=== PATIENT | female | born 1940 | race Caucasian/White ===

== ENCOUNTER → 2018-11-24 10:39 | Outpatient (CLI) | payer MEDICARE, BC, SELFPAY ==
--- NOTE | 2018-11-24 10:47 | DI.CT.S_ITS ---
PROCEDURE: CT CHEST WO CON INDICATIONS: PULMONARY NODULES COPD TECHNIQUE: Noncontrast 2.0-2.5 mm thick sections acquired from the pulmonary apices to the posterior costophrenic angles. 7 mm thick axial MIP and 5 mm coronal and sagittal reformats were then acquired. A low radiation dose technique was utilized. COMPARISON: None. FINDINGS: Image quality: Diagnostic, given the low radiation dose technique. Lungs and pleura: No acute airspace opacities. No pleural effusion or pneumothorax. Mild interlobular septal thickening is present at the bilateral dependent bases suggesting either dependent atelectasis or early fibrotic changes. There is a 4 mm diameter pulmonary nodule at the lingular base (series 2, image 189). No other pulmonary nodules. Mediastinum: Heart size is normal. No pericardial effusion. No mediastinal adenopathy by size criteria. Thoracic aorta and central pulmonary arteries are normal in size. Esophagus is normal in caliber. No hiatal hernia. Bones and chest wall: No suspicious bony lesions. No vertebral body compression fractures. No axillary or supraclavicular adenopathy by size criteria. Surgical clips are present within the right axilla. Thyroid gland is unremarkable. Abdomen: Pneumobilia is partially characterized at the dome of the liver. Visualized upper abdomen solid organs and bowel loops appear normal in the absence of contrast. IMPRESSION: 1. 4 mm lingular nodule. No followup routinely recommended; however in a high risk patient, 12 month followup could be considered. 2. Partially visualized pneumobilia. Please correlate with clinical history and prior biliary intervention. If further characterization is warranted, CT of the abdomen is recommended. Fleischner Society criteria for SOLID lung nodule followup. Nodule size (mm)Low-risk patientHigh-risk patient<6 (single or multiple)No routine followup.Optional CT at 12 months. 6-8 (single or multiple)CT at 6-12 months, then optional CT at 18-24 mo.CT at 6-12 months, then CT at 18-24 months. >8 (single)CT at 3 months, PET-CT, or biopsy. Same as for low-risk pts. >8 (multiple)CT at 3-6 months, then optional CT at 18-24 mo.CT at 3-6 months, then CT at 18-24 months. Fleischner Society criteria for SUB-SOLID lung nodule followup. Solitary pure ground-glass nodules<6 mm (ground glass or part solid)No followup needed. 6 mm or larger (ground glass)CT at 6-12 months to confirm persistence, then CT every 2 years until 5 years.6 mm or larger (part solid)CT at 3-6 months to confirm persistence, then annual CT until 5 years if unchanged and solid component remains <6 mm. Multiple sub-solid nodules<6 mmCT at 3-6 months, then CT consider at 2 & 4 years for high risk patients. [address] at 3-6 months. Subsequent management based on most suspicious lesions. Recommendations do not apply to lung cancer screening, patients with immunosuppression, or patients with known primary cancer. Dictated by: Anay Swanson M.D. on 11/24/2018 at 13:39 Approved by: Anay Swanson M.D. on 11/24/2018 at 13:43
== END ==
PROVIDERS: Visit Provider Internal Medicine Critical Care Medicine
DX: R91.8 Other nonspecific abnormal finding of lung field (principal); J44.9 Chronic obstructive pulmonary disease, unspecified
CPT/HCPCS: 71250

== ENCOUNTER → 2019-07-13 09:37 | Outpatient (CLI) | payer MEDICARE, BC, SELFPAY ==
--- NOTE | 2019-07-13 | DI.MRI.S_ITS ---
PROCEDURE: MR LUMBAR SPINE WO CON INDICATIONS: Lumbago with sciatica, left side TECHNIQUE: Noncontrast sagittal T1 spin echo and T2 fast echo, sagittal STIR, axial T1 and T2 fast spin echo through the lumbar spine. In cases with scoliosis, additional coronal T2 fast spin echo may be performed. COMPARISON: [facility], MR, L-SPINE WITHOUT CONTRAST, 02/26/2011, 18:22. FINDINGS: Image quality: Diagnostic. Patient motion artifact. Alignment and Curvature: Anterolisthesis of L4 on L5 measures approximately 5 mm. Trace retrolisthesis of L2 on L3. Bone Marrow: Marrow is of normal overall signal. No acute vertebral body compression fractures. Spinal Cord: Conus medullaris terminates at the L1 level. Visualized cord demonstrates normal signal and size. Paraspinous Soft Tissues: No paravertebral masses. T12-L1: Mild disc bulge. No canal stenosis or foraminal stenosis. L1-L2: Interval progression. Disc bulge and facet and ligament hypertrophy. Mild to moderate canal stenosis. No significant foraminal stenosis. L2-L3: Previous right paracentral disc protrusion has significantly improved. However, there is moderate diffuse disc bulge. Facet and ligament hypertrophy has progressed. There is severe multifactorial canal stenosis. There is mild foraminal stenosis. L3-L4: Diffuse disc bulge is slightly improved. However, there is disc bulge and facet and ligament hypertrophy resulting in severe canal stenosis. There is mild to moderate bilateral foraminal narrowing with flattening deformity of the exiting bilateral L3 nerve roots. L4-L5: A combination of mild anterolisthesis of L4 on L5, posterior disc bulge, and exuberant facet and ligament hypertrophy result in marked canal stenosis. Mild left foraminal stenosis. L5-S1: Disc bulge, facet and ligament hypertrophy. At least moderate canal stenosis. Mild bilateral foraminal stenosis. IMPRESSION: 1. Despite resolution of a disc protrusion at L2-L3 and improvement in the disc bulge at L3-L4, there has been overall multilevel progression 2. Canal stenosis is mild to moderate at L1-L2, severe at L2-L3, severe at L3-L4, marked at L4-L5, and at least moderate at L5-S1. Dictated by: Prashant Baptiste M.D. on 07/13/2019 at 11:08 Approved by: Prashant Baptiste M.D. on 07/13/2019 at 11:17
== END ==
PROVIDERS: Referring Provider Acupuncturist; Visit Provider Acupuncturist
DX: M51.16 Intervertebral disc disorders with radiculopathy, lumbar region (principal); M48.061 Spinal stenosis, lumbar region without neurogenic claudication; M48.07 Spinal stenosis, lumbosacral region; M43.16 Spondylolisthesis, lumbar region
CPT/HCPCS: 72148

== ENCOUNTER → 2021-01-16 13:57 | Outpatient (CLI) | payer MEDICARE, BC, SELFPAY ==
--- NOTE | 2021-01-16 | DI.MRI.S_ITS ---
PROCEDURE: MR LUMBAR SPINE WO CON INDICATIONS: Lumbago with sciatica, right side TECHNIQUE: Noncontrast sagittal T1 spin echo and T2 fast echo, sagittal STIR, axial T1 and T2 fast spin echo through the lumbar spine. In cases with scoliosis, additional coronal T2 fast spin echo may be performed. COMPARISON: [facility], , MR LUMBAR SPINE WO CON, 07/13/2019, 10:05. FINDINGS: Image quality: This examination is limited by involuntary motion artifact. Alignment and Curvature: There is normal bony alignment. Bone Marrow: Marrow is of normal overall signal. No acute vertebral body compression fractures. Spinal Cord: Conus medullaris terminates at the L1 level. Visualized cord demonstrates normal signal and size. Paraspinous Soft Tissues: No paravertebral masses. T12-L1: Normal appearance. L1-L2: The disc height and disc signal are relatively well preserved. Mild generalized disc bulge is seen. Mild to moderate facet hypertrophy is seen. Associated hypertrophy of the ligamentum flavum can be seen. There is moderate left-sided and [id number] right-sided neural foraminal narrowing seen. Mild central canal narrowing is seen. There is no significant progression compared to 2019. L2-L3: At least moderate loss of disc height and disc signal can be seen. Reactive marrow endplate changes are seen, which are hyperintense on T1-weighted and T2-weighted imaging and most consistent with fatty metaplasia (Modic type II changes). Moderate disc bulge is seen, with a central/right disc protrusion. At least moderate facet hypertrophy is seen. Associated hypertrophy of the ligamentum flavum can be seen. There is moderate left-sided and [id number] right-sided neural foraminal narrowing seen. Moderate to severe central canal narrowing is seen, as on series 5, image 15. When comparison is made with the prior images, these findings are similar. L3-L4: Moderate loss of disc height is seen. Loss of disc signal is seen. At least moderate disc bulge is seen, which is eccentric to the right. At least moderate facet hypertrophy is seen at this level. Associated hypertrophy of the ligamentum flavum can be seen. There is moderate to severe left-sided and at least moderate right-sided neural foraminal narrowing seen. There is a degree of compression seen upon the exiting nerve roots. Moderate to severe central canal narrowing is seen, as on series 5, image 21. When comparison is made with the prior images, these findings are similar. L4-L5: The disc height is well-preserved. Loss of disc signal is seen at this level. Moderate generalized disc bulge is seen. Prominent facet hypertrophy is seen at this level. Associated hypertrophy of the ligamentum flavum can be seen. There is mild left-sided and no significant right-sided neural foraminal narrowing seen. Moderate to severe central canal narrowing is seen at this level. Compared to 2020, no significant progression of the degenerative change can be seen. L5-S1: The disc height is well-preserved. Loss of disc signal is seen at this level. Moderate disc bulge is seen, which is eccentric to the right. There is a central/left disc protrusion. There is a focal annular fissure seen posteriorly. Moderate facet joint hypertrophy is seen. There is at least moderate bilateral neural foraminal narrowing seen. There is a degree of compression seen upon the exiting nerve roots. At least moderate central canal narrowing can be seen. Compared to the prior images, these findings are mildly progressed. IMPRESSION: Lumbar spine degenerative changes are seen, which are slightly progressed at L5-S1 compared to 2020. Otherwise, stable degenerative changes. Dictated by: Pepe Vines M.D. on 01/16/2021 at 15:48 Approved by: Pepe Vines M.D. on 01/16/2021 at 15:53
== END ==
PROVIDERS: PCP Physician Assistant Medical; Referring Provider Acupuncturist; Visit Provider Acupuncturist
DX: M54.41 Lumbago with sciatica, right side (principal); M51.36 Other intervertebral disc degeneration, lumbar region; M51.37 Other intervertebral disc degeneration, lumbosacral region
CPT/HCPCS: 72148

== ENCOUNTER → 2021-03-12 11:18 | Outpatient (CLI) | payer MEDICARE, BC, SELFPAY ==
--- NOTE | 2021-03-12 11:22 | DI.CT.S_ITS ---
PROCEDURE: CT LUMBAR SPINE WO CON INDICATIONS: Spinal stenosis, lumbar region without neurogenic claudicati TECHNIQUE: Noncontrast 3 mm thick sections acquired from the T12 level to the sacrum. Sagittal and coronal reformats were constructed. For radiation dose reduction, the following was used: automated exposure control. COMPARISON: None. FINDINGS: Image quality: Excellent. Bones: There is normal bony alignment. No acute vertebral body compression fractures. No suspicious lytic or blastic bony lesions. No pars defects. T12-L1: Disc height is preserved. No disc bulge or protrusion. No central or foraminal stenosis. L1-L2: Disc height is preserved. Mild circumferential disc bulge results in minimal central stenosis. No foraminal stenosis. L2-L3: Moderate disc space narrowing and vacuum disc phenomena present. There is a circumferential disc bulge and hypertrophic facet joints resulting in severe central stenosis. Moderate bilateral foraminal stenosis. L3-L4: A disc height narrowing and vacuum disc phenomena associated with circumferential disc bulge, ligamentum flavum hypertrophy and hypertrophic facet joints associated with severe central stenosis. Moderate bilateral foraminal stenosis present. L4-L5: Mild disc height loss. There is a circumferential disc bulge combines with hypertrophic facet joints resulting in severe central stenosis. Mild right and moderate left foraminal stenosis present. L5-S1: Mild disc height loss and circumferential disc bulge present. Moderate central stenosis and moderate bilateral foraminal stenosis present. Soft tissues: No retroperitoneal masses or hematomas. Visualized aorta is normal in caliber. Cholecystectomy noted. IMPRESSION: Multilevel degenerative disc disease and arthropathy resulting in varying degrees of central and foraminal stenosis including severe central stenosis at L2-3, L3-4 and L4-5 Approved by: Ashutosh Infante M.D. on 03/12/2021 at 13:28
== END ==
PROVIDERS: PCP Physician Assistant Medical; Referring Provider Neurological Surgery; Visit Provider Neurological Surgery
DX: M48.061 Spinal stenosis, lumbar region without neurogenic claudication (principal); M51.36 Other intervertebral disc degeneration, lumbar region; M47.816 Spondylosis without myelopathy or radiculopathy, lumbar region
CPT/HCPCS: 72131

== ENCOUNTER 2022-04-06 09:35 | Emergency (ER) | payer MEDICARE, BC, SELFPAY ==
[2022-04-06] VITALS (35 sets, daily range): BP systolic 104–170; BP diastolic 53–82; PULSE 47–64; RESP 14–22; TEMP 36.2–37; O2SAT 90–100
--- NOTE | 2022-04-06 09:49 | DI.CT.S_ITS ---
PROCEDURE: CT HEAD/BRAIN WO CON INDICATIONS: yazmin lift hit patient in head, on asa, lac to forehead TECHNIQUE: Noncontrast 4.5 mm thick angled axial sections acquired from the foramen magnum to the vertex, with coronal and sagittal reformats. For radiation dose reduction, the following was used: automated exposure control, adjustment of mA and/or kV according to patient size. COMPARISON: Outside Film, CT, CT HEAD WITHOUT CONTRAST, 01/03/2018, 22:11. FINDINGS: Image quality: Excellent. CSF spaces: Basal cisterns are patent. No extra-axial fluid collections. The ventricles are symmetric in size and shape. Brain: No intracranial bleeds or masses. There is cerebral volume loss for age, with resultant ventricular and sulcal prominence. There are periventricular and deep white matter chronic small vessel ischemic changes. There is intracranial internal carotid artery atherosclerosis. Note is made of a cavum septum pellucidum. When discovered in isolation, this is considered to be a developmental variant of no clinical consequence. Skull and face: Forehead hematoma can be seen. No associated fracture is seen. Calvarium and visualized facial bones appear intact, without suspicious lesions. Incidental note is made of hyperostosis frontalis. This is not considered to be pathologic in a woman of this age. Sinuses: Moderate mucosal thickening is seen within the visualized left maxillary sinus. The paranasal sinuses otherwise appear clear. No abnormal fluid is seen within the mastoid air cells. IMPRESSION: Forehead hematoma, without an associated fracture. No acute intracranial hemorrhage is seen. No acute intracranial process is seen. Dictated by: Pepe Vines M.D. on 04/06/2022 at 9:37 Approved by: Pepe Vines M.D. on 04/06/2022 at 9:39
--- NOTE | 2022-04-06 09:49 | ED_ITS ---
HPI - Head Injury General Chief complaint: Head Injury Stated complaint: head lac, hit with luis alberto Time Seen by Provider: 04/06/22 09:40 Source: patient Mode of arrival: EMS Limitations: no limitations History of Present Illness HPI Narrative: This is an 81-year-old female oxygen dependent with COPD, CHONG, history of cancer on an aspirin daily. Patient was at home she is been bed-bound for the past month since discharge from hospital for her past COPD exacerbation. The caregivers today or adjusting her Luis Alberto lift when the arm bar/handle hit her in the forehead. She did not take the full brunt or weight of the main portion of the lift when hit in the head. Reported laceration across the forehead, no loss consciousness. Patient states animal to no headache currently, she denies injury to her face she has some bruising over the top of her nose which she states is from her BiPAP. Patient denies neck or back pain. No new chest pain or shortness of breath, no new numbness tingling or weakness. No nausea or vomiting, no dizziness or vision changes. Patient states she has chronic pain in her right leg which she takes pain medication. Patient states she has had her morning meds today. Unsure of her tetanus status. Surgeries include prior port placement, cholecystectomy and hysterectomy. Patient denies any prior cardiac interventions or intrathoracic surgery. Related Data Allergies Allergy/AdvReac Type Severity Reaction Status Date / Time No Known Drug Allergies Allergy Verified 04/06/22 09:52 Review of Systems Review of Systems ROS Unobtainable: All systems reviewed & are unremarkable except as noted in HPI and below Patient History Social History Smoking Status: Former smoker Exam Narrative Exam Narrative: GEN: Patient appears in mild distress. Obese female. HEAD: , no raccoon/Hussein sign. NECK: Nontender, painless range of motion, trachea midline Negative Nexus criteria, there is no midline line tenderness, distracting injury, altered mental status, neuro deficit, recent EtOH. EYES: PERRLA, EOMI ENT: External inspection normal except for mild bruising over the bridge of the nose which patient states is from her CPAP no bony tenderness, trachea is midline, TM's are normal no hemotypanum, Nares are clear, no septal hematoma, no dental or oral injury, airway is normal and with normal occlusion, No bony tenderness RESP: Chest is nontender and has symmetric movement, no ecchymosis, breath sounds are normal no crackles, wheezes or rales CVS: Heart sounds are normal, no murmur noted, No JVD. Patient has bilateral swelling lower extremities. ABG/GI: Nontender, soft, normal bowel sounds, no distention, no organomegaly, pelvic rock is negative NEURO: Oriented AOx3, neuro is grossly intact, sensation and motor is normal all 4 extremities moving, cranial nerves II through XII are intact, GCS is 15 PSYCH: Normal mood and affect SKIN: Intact, warm and dry, no crepitus and without decubitus BACK: No CVA tenderness, no vertebral tenderness, no step-off's, no crepitus EXT: Atraumatic, hips are nontender, no pedal edema, normal color and temperature, normal range of motion of extremities with normal tendon exam, 2+ pulses in all four extremities Initial Vital Signs Initial Vital Signs: Vital Signs Pulse Rate 55 L 04/06/22 09:46 Blood Pressure 170/72 H 04/06/22 09:46 Pulse Oximetry 98 04/06/22 09:46 Procedures Laceration Repair Laceration 1: Time of procedure: 12:14 Site: face Local Anesthetic: lidocaine 1% Amount of anesthesia used (mL): 8 Pre-repair: wound explored, irrigated extensively and deep structures intact Skin layer closed with: vicryl Skin layer suture size: 4-0 Number of sutures: 13 Technique: simple, interrupted Laceration 2: Time of procedure: 12:14 Site: face Size (cm): 1 Description: linear Depth: simple, single layer Local Anesthetic: lidocaine 1% Amount of anesthesia used (mL): 2 Pre-repair: wound explored, irrigated extensively and deep structures intact Skin layer closed with: vicryl Skin layer suture size: 4-0 Number of sutures: 2 Technique: simple, interrupted Scores [place] CT Head Rule Age <16 years old: No Patient on blood thinners: Yes Seizure after injury: No Exclusion: Patient meets exclusion criteria GCS < 15 at 2 hr post trauma: No Suspected open or depressed skull fracture: No Any sign of basilar skull fracture (hemotympanum, raccoon eyes, Hussein's sign, CSF dennis-/rhinorrhea): No Two or more episodes of vomiting: No Age greater or equal to 65 years: Yes Retrograde amnesia to the event greater or equal to 30 min: No Dangerous Mechanism (pedestrian vs. mv, occupant ejected from mv, fall from >3 ft or > 5 stairs): Yes Recommendation: Consider CT. The [place] Head CT Rule cannot rule out need for Imaging. GCS Jenae coma scale eye opening: Spontaneous [place] [address] coma scale verbal response: Orientated [place] [address] coma scale motor response: Obey commands Jenae coma scale total score: 15 Course Orders Ordered: Discontinued Medications Cyclobenzaprine HCl (Cyclobenzaprine 10 Mg Tablet) 10 mg PO NOW ONE Stop: 04/06/22 11:30 Last Admin: 04/06/22 11:47 Dose: 10 mg Documented By: AT Diphtheria/Tetanus/Acell Pertussis (Tet,Diph,Pertuss(Acell),Vac/Pf 0.5 Ml Syringe) 0.5 ml IM .ONCE ONE Stop: 04/06/22 09:54 Last Admin: 04/06/22 11:51 Dose: 0.5 ml Documented By: AT Influenza Virus Vaccine (Influenza Hd Vaccine 0.7 Ml Syringe) 0.7 ml IM .ONCE ONE Stop: 04/06/22 11:30 Last Admin: 04/06/22 11:50 Dose: 0.7 ml Documented By: AT Lidocaine HCl (Lidocaine 2% Inj Sdv) 10 ml INJ INTRA-OP ONE Stop: 04/06/22 10:46 Last Admin: 04/06/22 11:56 Dose: 10 ml Documented By: AT Oxycodone HCl (Oxycodone Ir 5 Mg Tablet) 5 mg PO NOW ONE Stop: 04/06/22 11:27 Last Admin: 04/06/22 11:47 Dose: 5 mg Documented By: AT Vital Signs Vital signs: Vital Signs - 8 hr 04/06/22 09:48 04/06/22 09:46 04/06/22 09:46 Temperature 97.2 F L Pulse Rate 57 L 55 L Respiratory Rate 14 Blood Pressure 170/72 H 170/72 H Pulse Oximetry 99 98 Oxygen Delivery Method Room Air 04/06/22 10:08 04/06/22 10:10 04/06/22 10:10 Temperature Pulse Rate 52 L 56 L Respiratory Rate Blood Pressure 135/82 Pulse Oximetry 99 94 Oxygen Delivery Method 04/06/22 10:30 04/06/22 10:31 04/06/22 10:31 Temperature Pulse Rate 55 L 55 L Respiratory Rate Blood Pressure 136/63 Pulse Oximetry 95 Oxygen Delivery Method 04/06/22 11:00 04/06/22 11:01 04/06/22 11:01 Temperature Pulse Rate 56 L 50 L Respiratory Rate Blood Pressure 127/58 L Pulse Oximetry 97 96 Oxygen Delivery Method 04/06/22 11:30 04/06/22 11:31 04/06/22 11:31 Temperature Pulse Rate 52 L 54 L Respiratory Rate Blood Pressure 142/65 H Pulse Oximetry 99 98 Oxygen Delivery Method MDM - Head Injury Imaging Data CT scan - head: Radiologist's Impression: [address] [address] [address] Scan Report Signed Patient: Cecelia Hugo MR#: [id number] : 1940 Acct:[id number] Age/Sex: 81 / F Date of Service: 04/06/22 Loc: ED Accession Number: [id number] ?? Procedure: CT head/brain wo con Ordering Provider: Jolanta Emerson D.O. PROCEDURE:? CT HEAD/BRAIN WO CON ? INDICATIONS:? luis alberto lift hit patient in head, on asa, lac to forehead ? TECHNIQUE:? Noncontrast 4.5 mm thick angled axial sections acquired from the foramen magnum to the vertex, with coronal and sagittal reformats.? For radiation dose reduction, the following was used:? automated exposure control, adjustment of mA and/or kV according to patient size.? ? COMPARISON:? Outside Film, CT, CT HEAD WITHOUT CONTRAST, 01/03/2018, 22:11. ? FINDINGS:? Image quality:? Excellent.? ? CSF spaces:? Basal cisterns are patent.? No extra-axial fluid collections.? The ventricles are symmetric in size and shape.? ? Brain:? No intracranial bleeds or masses.? There is cerebral volume loss for age, with resultant ventricular and sulcal prominence.? There are periventricular and deep white matter chronic small vessel ischemic changes.? There is intracranial internal carotid artery atherosclerosis.? Note is made of a cavum septum pellucidum.? When discovered in isolation, this is considered to be a developmental variant of no clinical consequence.? ? Skull and face:? Forehead hematoma can be seen.? No associated fracture is seen.? Calvarium and visualized facial bones appear intact, without suspicious lesions.? Incidental note is made of hyperostosis frontalis. This is not considered to be pathologic in a woman of this age. ? Sinuses:? Moderate mucosal thickening is seen within the visualized left maxillary sinus. ?The paranasal sinuses otherwise appear clear. No abnormal fluid is seen within the mastoid air cells. ? ? IMPRESSION:? Forehead hematoma, without an associated fracture. ? No acute intracranial hemorrhage is seen.? ? No acute intracranial process is seen.? ? ? Dictated by: Pepe Vines M.D. on 04/06/2022 at 9:37 ? ? Approved by: Pepe Vines M.D. on 04/06/2022 at 9:39?? [facility] Narrative Medical decision making narrative: This is a pleasant 81-year-old female who was struck in the head by the arm of her Luis Alberto lift, patient did not take the full force of the lift weight. Just a laceration on her forehead requiring repair. Head CT was ordered as she is on aspirin daily. Patient's head CT was negative. Laceration was repaired. Patient was held in the emergency department on L BLS crew was available for transport she is bed-bound. We did give her typical home medications for pain and muscle spasm as her right leg was giving her some discomfort which she states was secondary to more movement than normal she did not think she had any other new injuries and none were found on examination. Discharge Plan Departure Patient Disposition: Home Clinical Impression: Head injury, Facial laceration Instructions: DI for Laceration Repair Activity Restrictions/Additional Instructions: Patient has absorbable sutures, these do not require any removal unless still present at 10 days. I hope you continue to feel better and have an uneventful week. You can continue your home medications as prescribed. Wound Care: Keep wound(s) clean and dry and pat dry. Wash daily with soap and water only. Do not use over the counter products (alcohol or peroxide)on the wounds unless instructed by a physician. Once the sutures have absorb you can use Aquaphor over the wound as well as sunscreen to decrease scarring. If wound condition worsens (increased/expanding redness, developing fluid blisters, or worsening pain), either contact your doctor for an urgent re- assessment , or return to the Emergency Department. Return to the Emergency Department for any new or worsening symptoms. Return if fever greater than 100.4 Fahrenheit, increased swelling, increasing pain or worsening symptoms such as increased discharge or spreading redness. Use warm compresses 3 times daily for 20 minutes to the affected area. If there is packing in place do not pull it out, if it falls out do not try to replace it. Referrals: Anna Marie Curtis PA-C [Primary Care Provider] - Visit Report Forms: Patient Portal/API
[2022-04-06] MEDS: CYCLOBENZAPRINE 10 MG TABLET PO (11:47)
[2022-04-06] MEDS: OXYCODONE IR 5 MG TABLET PO (11:47)
[2022-04-06] MEDS: INFLUENZA HD VACCINE 0.7 ML SYRINGE IM (11:50)
[2022-04-06] MEDS: TET,DIPH,PERTUSS(ACELL),VAC/PF 0.5 ML SYRINGE IM (11:51)
[2022-04-06] MEDS: LIDOCAINE 2% INJ SDV 10 ML INJ (11:56)
== END 2022-04-06 17:35 | disposition home or self-care (01) ==
PROVIDERS: Emergency Provider Emergency Medicine; PCP Physician Assistant Medical
DX: S01.81XA Laceration without foreign body of other part of head, initial encounter (principal); W22.8XXA Striking against or struck by other objects, initial encounter; Z23 Encounter for immunization
CPT/HCPCS: 12013; 70450; 90471; 90662; 99284; 90715

== ENCOUNTER → 2022-05-29 11:58 | Outpatient (CLI) | payer MEDICARE, BC, SELFPAY ==
--- NOTE | 2022-05-29 12:03 | DI.RAD.S_ITS ---
PROCEDURE: XR LUMBAR SPINE MIN 4V INDICATIONS: LOW BACK PAIN TECHNIQUE: 6 views of the lumbar spine acquired, including flexion and extension views and oblique views. COMPARISON: [facility], MR, MR LUMBAR SPINE WO CON, 01/16/2021, 14:10. FINDINGS: Bones: 5 nonrib-bearing vertebrae are present. There is normal bony alignment. No vertebral body compression fractures. No suspicious bony lesions. Soft tissues: Overlying bowel gas pattern is normal. No suspicious soft tissue calcifications. Flexion/extension: There is diminished range of motion, with preserved normal alignment. Oblique films: No pars defects. IMPRESSION: 1. Lower lumbar facet arthropathy. 2. No abnormal motion on flexion and extension. 3. No pars defects. Dictated by: Prashant Baptiste M.D. on 05/29/2022 at 16:33 Approved by: Prashant Baptiste M.D. on 05/29/2022 at 16:35
== END ==
PROVIDERS: PCP Physician Assistant Medical; Referring Provider Anesthesiology; Visit Provider Anesthesiology
DX: M54.50 Low back pain, unspecified (principal); M47.26 Other spondylosis with radiculopathy, lumbar region; G89.29 Other chronic pain
CPT/HCPCS: 72110; 99214

== ENCOUNTER → 2023-08-01 09:41 | Outpatient (CLI) | payer MEDICARE, BC, SELFPAY ==
--- NOTE | 2023-08-01 09:44 | DI.NM.S_ITS ---
PROCEDURE: NM BONE SCAN WHOLE BODY RADIOPHARMACEUTICAL: 19.1 mCi Tc-99m MDP IV. INDICATIONS: BREAST CANCER TECHNIQUE: Delayed whole-body scintigrams were obtained approximately 3-4 hours after intravenous injection of radiotracer. Anterior and posterior views were acquired from vertex to feet. COMPARISON: [facility], CR, XR LUMBAR SPINE MIN 4V, 05/29/2022, 12:31. MR, MR LUMBAR SPINE WO CON, 01/16/2021, 14:10. [facility], CT, CT HEAD/BRAIN WO CON, 04/06/2022, 10:00. [facility], CT, CT LUMBAR SPINE WO CON, 03/12/2021, 11:28. FINDINGS: There is heterogeneous uptake in calvarium. A focal uptake noted in the left iliac bone adjacent to the sacroiliac joint. No lesions are identified in sternum, clavicles, scapulae, ribs, and visualized shafts of the long bones. There are foci of increased uptake in cervical, thoracic and lumbar spine most likely secondary to degenerative disc and facet disease; early metastasis to spine could be obscured by degenerative changes. There are foci of increased periarticular activity most pronounced in shoulders hips, compatible with degenerative/arthritic changes. Bladder is distended, which partially obscure adjacent pelvis. IMPRESSION: 1. Heterogeneous uptake in calvarium. Recommend radiographic correlation. 2. Focal uptake in the left iliac bone adjacent to the sacroiliac joint. Recommend radiographic correlation. 3. Elsewhere, no definitive scintigraphic findings to suggest osseous metastasis. 4. Degenerative/arthritic changes noted. Dictated by: Jacinto Haque M.D. on 08/01/2023 at 15:19 Approved by: Jacinto Haque M.D. on 08/02/2023 at 8:18
== END ==
PROVIDERS: PCP Physician Assistant Medical; Referring Provider Internal Medicine Hematology & Oncology; Visit Provider Internal Medicine Hematology & Oncology
DX: C50.811 Malignant neoplasm of overlapping sites of right female breast; Z78.0 Asymptomatic menopausal state; Z17.0 Estrogen receptor positive status [ER+]
CPT/HCPCS: 78306; A9503